=== PATIENT | female | born 1960 | race Caucasian/White ===

== ENCOUNTER 2020-10-09 21:42 | Emergency (ER) | payer MEDICAID ==
[2020-10-09] MEDS ORDERED: methylPREDNISolone Sodium Succinate 125 MG/2 ML SDV IM ONE (21:57)
[2020-10-09] MEDS ORDERED: Albuterol/Ipratropium 3.0-0.5 MG/3 ML Neb Soln NEB ONE ×2 (21:57→23:23)
--- NOTE | 2020-10-09 22:37 | EDM.PDOC ---
ED HPI GENERAL MEDICAL PROBLEM - General Chief Complaint: Respiratory Problem Stated Complaint: TROUBLE WITH COPD Time Seen by Provider: 10/09/20 21:57 Source of Information: Reports: Patient History Limitations: Reports: No Limitations - History of Present Illness INITIAL COMMENTS - FREE TEXT/NARRATIVE: Tonya is a 60-year-old female with complaint of increased dyspnea. She has a history for COPD but continues to smoke. She is visiting from [place] for her mother's Memorial. She states that she has had increasing dyspnea over the last 2 days and has been trying to use her medications without any improvement. Prompted her to come to the ER tonight. Patient denies any fever. She has a cough but has not been productive. She has increased dyspnea and tented respirations. Despite her advanced COPD she still smokes 1 pack/day. Thoracic Pain Score (Numeric/FACES): 6 - Related Data Allergies Allergy/AdvReac Type Severity Reaction Status Date / Time No Known Allergies Allergy Verified 10/09/20 21:43 Home Meds: Home Meds Albuterol Sulfate [Albuterol Sulfate Hfa] 2 puff INH Q4HR PRN 10/09/20 [History] Benzonatate [Tessalon Perle] 100 mg PO TID PRN #20 capsule 10/09/20 [Rx] Budesonide/Formoterol [Symbicort 160-4.5 MCG] 2 puff INH BID 10/09/20 [History] FLUoxetine HCl [Fluoxetine HCl] 2 cap PO DAILY 10/09/20 [History] Fluticasone Propionate [Flonase] 2 inh NASLF DAILY 10/09/20 [History] Fluticasone/Salmeterol [Advair 500-50] 2 inh INH DAILY 10/09/20 [History] Levothyroxine 1 tab PO DAILY 10/09/20 [History] Zolpidem Tartrate [Ambien] 1 tab PO BEDTIME 10/09/20 [History] ED ROS GENERAL - Review of Systems Review Of Systems: See Below Constitutional: Reports: No Symptoms HEENT: Reports: No Symptoms Respiratory: Reports: Shortness of Breath, Wheezing, Cough. Denies: Sputum Cardiovascular: Reports: No Symptoms Endocrine: Reports: No Symptoms GI/Abdominal: Reports: No Symptoms : Reports: No Symptoms Musculoskeletal: Reports: No Symptoms Skin: Reports: No Symptoms Neurological: Reports: No Symptoms Psychiatric: Reports: Anxiety Hematologic/Lymphatic: Reports: No Symptoms Immunologic: Reports: No Symptoms ED EXAM, GENERAL - Physical Exam Exam: See Below Exam Limited By: No Limitations General Appearance: Alert, Moderate Distress Eye Exam: Bilateral Eye: EOMI, PERRL Throat/Mouth: Normal Inspection, Normal Oropharynx, Normal Voice, No Airway Compromise Head: Atraumatic, Normocephalic Neck: Normal Inspection, Supple Respiratory/Chest: Respiratory Distress (Tachypnea with tented respirations), Decreased Breath Sounds (Diminished breath sounds especially in the bases), Wheezing (Diffuse bilateral expiratory greater than inspiratory wheezes), Accessory Muscle Use, Prolonged Expiration Cardiovascular: Normal Peripheral Pulses, Regular Rate, Rhythm, No Murmur Peripheral Pulses: 2+: Radial (L), Radial (R), Posterior Tibial (L), Posterior Tibial (R) GI/Abdominal: Normal Bowel Sounds, Soft, Non-Tender Back Exam: Normal Inspection Extremities: Normal Inspection, No Pedal Edema Neurological: Alert, Oriented, Normal Cognition, No Motor/Sensory Deficits Psychiatric: Normal Affect, Anxious Skin Exam: Warm, Dry Lymphatic: No Adenopathy Course - Vital Signs Last Recorded V/S: Last Vital Signs Temp 36.8 C 10/09/20 22:00 Pulse 102 H 10/09/20 22:00 Resp 18 10/09/20 22:00 BP 164/82 H 10/09/20 22:00 Pulse Ox 95 10/09/20 22:00 - Orders/Labs/Meds Orders: Active Orders 24 hr Category Date Time Status RT Aerosol Therapy [RC] ASDIRECTED Care 10/09/20 21:58 Active RT Aerosol Therapy [RC] ASDIRECTED Care 10/09/20 23:23 Active Chest 2V [CR] Stat Exams 10/09/20 21:57 Taken Labs: Laboratory Tests 10/09/20 10/09/20 Range/Units 22:12 22:12 WBC 10.0 (4.5-11.0) K/uL RBC 4.05 (3.30-5.50) M/uL Hgb 12.4 (12.0-15.0) g/dL Hct 38.3 (36.0-48.0) % MCV 95 (80-98) fL MCH 31 (27-31) pg MCHC 32 (32-36) % Plt Count 391 (150-400) K/uL Neut % (Auto) 58 (36-66) % Lymph % (Auto) 28 (24-44) % [place] % (Auto) 10 H (2-6) % Eos % (Auto) 4 (2-4) % Baso % (Auto) 0 (0-1) % Sodium 148 (140-148) mmol/L Potassium 4.0 (3.6-5.2) mmol/L Chloride 108 (100-108) mmol/L Carbon Dioxide 25 (21-32) mmol/L Anion Gap 15.5 H (5.0-14.0) mmol/L BUN 10 (7-18) mg/dL Creatinine 1.0 (0.6-1.0) mg/dL Est Cr Clr Drug Dosing TNP Estimated GFR (MDRD) 57 L (>60) Glucose 98 (74-106) mg/dL Calcium 10.1 (8.5-10.1) mg/dL Total Bilirubin 0.2 (0.2-1.0) mg/dL AST 38 H (15-37) U/L ALT 48 (12-78) U/L Alkaline Phosphatase 95 (46-116) U/L Total Protein 7.0 (6.4-8.2) g/dL Albumin 3.5 (3.4-5.0) g/dL Globulin 3.5 (2.3-3.5) g/dL Albumin/Globulin Ratio 1.0 L (1.2-2.2) Meds: Medications Discontinued Medications Generic Name Dose Route Start Last Admin Trade Name Freq PRN Reason Stop Dose Admin Albuterol/Ipratropium 3 ml 10/09/20 21:57 10/09/20 22:11 Albuterol/Ipratropium 3.0-0.5 Mg/3 Ml Neb Soln NEB 10/09/20 21:58 3 ml ONETIME ONE Administration Albuterol/Ipratropium 3 ml 10/09/20 23:23 10/09/20 23:30 Albuterol/Ipratropium 3.0-0.5 Mg/3 Ml Neb Soln NEB 10/09/20 23:24 3 ml ONETIME ONE Administration Benzonatate 200 mg 10/09/20 23:18 10/09/20 23:31 Benzonatate 100 Mg Cap PO 10/09/20 23:19 200 mg ONETIME ONE Administration Methylprednisolone Sodium Succinate 125 mg 10/09/20 21:57 10/09/20 22:11 Methylprednisolone Sodium Succinate 125 Mg/2 Ml Sdv IM 10/09/20 21:58 125 mg ONETIME ONE Administration - Radiology Interpretation Free Text/Narrative:: I reviewed the two-view chest x-ray showing hyperinflation and a left pleural effusion. There is no acute infiltrates. - Re-Assessments/Exams Free Text/Narrative Re-Assessment/Exam: 10/09/20 23:36 I reviewed the patient's x-rays of the chest as well as her labs. The chest x-ray shows hyperinflation without obvious infiltrates and a left pleural effusion. The labs show a normal CBC and comprehensive metabolic panel. This is likely an acute on chronic flare of her COPD. My plan is to treat her with azithromycin for bronchiectasis and a prednisone 10-day taper for her COPD flare. We will also give her a prescription for Tessalon Perles that she can fill in the morning for her cough. Departure - Departure Time of Disposition: 23:57 Disposition: Home, Self-Care 01 Clinical Impression: COPD exacerbation Bronchiectasis Qualifiers: Bronchiectasis type: with acute exacerbation Qualified Code(s): J47.1 - Br onchiectasis with (acute) exacerbation - Discharge Information Prescriptions: Benzonatate [Tessalon Perle] 100 mg PO TID PRN #20 capsule PRN Reason: Cough Instructions: COPD and Physical Activity, Chronic Obstructive Pulmonary Disease Exacerbation, [id number] Referrals: PCP,None [Primary Care Provider] - Forms: ED Department Discharge Care Plan Goals: I have prescribed azithromycin as an antibiotic to help with your bronchiectasis (chronic bronchitis) as well as a prednisone taper for your COPD exacerbation and a written prescription for you to fill in the morning for Tessalon Perles for the cough. Sepsis Event Note (ED) - Focused Exam Vital Signs: Vital Signs Temp Pulse Resp BP Pulse Ox 10/09/20 22:00 36.8 C 102 H 18 164/82 H 95 - Problem List & Annotations (1) Bronchiectasis SNOMED Code(s): 66636303 Code(s): J47.9 - BRONCHIECTASIS, UNCOMPLICATED Status: Acute Priority: High Current Visit: Yes Qualifiers: Bronchiectasis type: with acute exacerbation Qualified Code(s): J47.1 - Bronchiectasis with (acute) exacerbation (2) COPD exacerbation SNOMED Code(s): 600616344 Code(s): J44.1 - CHRONIC OBSTRUCTIVE PULMONARY DISEASE W (ACUTE) EXACERBATION Status: Acute Priority: High Current Visit: Yes - Problem List Review Problem List Initiated/Reviewed/Updated: Yes - My Orders Last 24 Hours: My Active Orders 10/09/20 21:57 Chest 2V [CR] Stat 10/09/20 21:58 RT Aerosol Therapy [RC] ASDIRECTED 10/09/20 23:23 RT Aerosol Therapy [RC] ASDIRECTED - Assessment/Plan Last 24 Hours: My Active Orders 10/09/20 21:57 Chest 2V [CR] Stat 10/09/20 21:58 RT Aerosol Therapy [RC] ASDIRECTED 10/09/20 23:23 RT Aerosol Therapy [RC] ASDIRECTED
[2020-10-09] MEDS ORDERED: Benzonatate 100 MG Cap PO ONE (23:18)
--- NOTE | 2020-10-11 09:49 | CR ---
CHEST: 2 view CLINICAL HISTORY:Dyspnea COMPARISON:None FINDINGS: The heart size, pulmonary vascularity and hilar structures are normal. No infiltrate effusion or pneumothorax is seen. IMPRESSION: No acute cardiopulmonary process.
== END 2020-10-10 00:12 | disposition home or self-care (01) ==
LOC: MERGE 21:42 → JP.ED 21:42
DX: J47.1 Bronchiectasis with (acute) exacerbation (principal)
CPT/HCPCS: 36415; 71046; 80053; 85025; 94640; 96372; 99285; A9270; J2930; J7620-GY

== ENCOUNTER 2021-01-04 21:38 | Emergency (ER) | payer MEDICAID ==
[2021-01-04] MEDS ORDERED: methylPREDNISolone Sodium Succinate 125 MG/2 ML SDV IVPUSH ONE (22:23)
[2021-01-04] MEDS ORDERED: Albuterol/Ipratropium 3.0-0.5 MG/3 ML Neb Soln NEB ONE ×2 (22:23→23:24)
[2021-01-04] MEDS ORDERED: Sodium Chloride 0.9% 10 ML Syringe FLUSH PRN (22:24)
[2021-01-04] MEDS ORDERED: Albuterol/Ipratropium 3.0-0.5 MG/3 ML Neb Soln ONE (23:25)
--- NOTE | 2021-01-04 23:26 | EDM.PDOC ---
ED HPI GENERAL MEDICAL PROBLEM - General Chief Complaint: Respiratory Problem Stated Complaint: COUGHING AND FEVER Time Seen by Provider: 01/04/21 22:18 Source of Information: Reports: Patient History Limitations: Reports: No Limitations - History of Present Illness INITIAL COMMENTS - FREE TEXT/NARRATIVE: Tonya is a 61-year-old female presenting to the ED for evaluation of fever as high as 104 F, cough producing thick sputum, and increasing shortness of breath. She has a history significant for COPD and is on continuous home oxygen. She reports that since the smoke came into the area she has been having increasing difficulty with breathing. She has been using her inhalers and her home nebulizers without much benefit. Its been over 4 months since her last COPD exacerbation. Her fever was first noted today. - Related Data Allergies Allergy/AdvReac Type Severity Reaction Status Date / Time No Known Allergies Allergy Verified 10/13/20 09:03 Home Meds: Home Meds Albuterol Sulfate [Albuterol Sulfate Hfa] 2 puff INH Q4HR PRN 10/09/20 [History] Benzonatate [Tessalon Perle] 100 mg PO TID PRN #20 capsule 10/09/20 [Rx] Budesonide/Formoterol [Symbicort 160-4.5 MCG] 2 puff INH BID 10/09/20 [History] FLUoxetine HCl [Fluoxetine HCl] 2 cap PO DAILY 10/09/20 [History] Fluticasone Propionate [Flonase] 2 inh NASLF DAILY 10/09/20 [History] Fluticasone/Salmeterol [Advair 500-50] 2 inh INH DAILY 10/09/20 [History] Levothyroxine 1 tab PO DAILY 10/09/20 [History] Zolpidem Tartrate [Ambien] 1 tab PO BEDTIME 10/09/20 [History] Budesonide/Formoterol [Symbicort 160-4.5 MCG] 2 puff INH BID #1 ea 01/05/21 [Rx] Fluticasone/Salmeterol [Advair 500-50] 2 puff INH BID #1 diskus 01/05/21 [Rx] Past Medical History HEENT History: Reports: Impaired Vision Respiratory History: Reports: Bronchitis, Recurrent, COPD, SOB Other Respiratory History: oxygen dependent [employer] History: Reports: Psychiatric History: Reports: Anxiety, PTSD Endocrine/Metabolic History: Reports: Hypothyroidism - Infectious Disease History Infectious Disease History: Reports: Chicken Pox, Measles Social & Family History - Tobacco Use Tobacco Use Status *Q: Former Tobacco User Used Tobacco, but Quit: Yes Month/Year Tobacco Last Used: 06/2020 - Caffeine Use Caffeine Use: Reports: Coffee - Recreational Drug Use Recreational Drug Use: No ED ROS GENERAL - Review of Systems Review Of Systems: See Below Constitutional: Reports: Fever, Chills HEENT: Reports: No Symptoms Respiratory: Reports: Shortness of Breath, Wheezing, Cough, Sputum Cardiovascular: Reports: No Symptoms Endocrine: Reports: Fatigue GI/Abdominal: Reports: No Symptoms : Reports: No Symptoms Musculoskeletal: Reports: No Symptoms Skin: Reports: No Symptoms Neurological: Reports: No Symptoms Psychiatric: Reports: No Symptoms Hematologic/Lymphatic: Reports: No Symptoms Immunologic: Reports: No Symptoms ED EXAM, GENERAL - Physical Exam Exam: See Below Exam Limited By: No Limitations General Appearance: Alert, Anxious, Mild Distress, Moderate Distress Eye Exam: Bilateral Eye: EOMI, PERRL Nose: Nasal Swelling, Nasal Drainage, Clear Rhinorrhea Throat/Mouth: Normal Inspection, Normal Lips, Normal Oropharynx, Normal Voice, No Airway Compromise Head: Normocephalic Neck: Normal Inspection, Supple Respiratory/Chest: Decreased Breath Sounds (Bilateral bases left greater than right), Wheezing (Inspiratory and expiratory wheezing throughout bilateral lung grimes.), Accessory Muscle Use, Prolonged Expiration. No: Retractions Cardiovascular: Normal Peripheral Pulses, Regular Rate, Rhythm, No Murmur Peripheral Pulses: 2+: Radial (L), Radial (R) GI/Abdominal: Normal Bowel Sounds, Soft, Non-Tender Back Exam: Normal Inspection Extremities: Normal Inspection, Normal Range of Motion, Normal Capillary Refill Neurological: Alert, Oriented, Normal Cognition, No Motor/Sensory Deficits Psychiatric: Normal Affect, Normal Mood Skin Exam: Warm, Dry Lymphatic: No Adenopathy Course - Vital Signs Last Recorded V/S: Last Vital Signs Temp 37.7 C 01/04/21 22:59 Pulse 96 01/04/21 22:59 Resp 22 H 01/04/21 22:59 BP 141/89 H 01/04/21 22:59 Pulse Ox 96 01/04/21 22:59 - Orders/Labs/Meds Orders: Active Orders 24 hr Category Date Time Status RT Aerosol Therapy [RC] ASDIRECTED Care 01/04/21 22:23 Active RT Aerosol Therapy [RC] ASDIRECTED Care 01/04/21 23:24 Active Chest 2V [CR] Stat Exams 01/04/21 22:23 Taken CULTURE BLOOD [BC] Urgent Lab 01/04/21 22:35 Received CULTURE BLOOD [BC] Urgent Lab 01/04/21 22:40 Received Sodium Chloride 0.9% [Saline Flush] Med 01/04/21 22:24 Active 10 ml FLUSH ASDIRECTED PRN Blood Culture x2 Reflex Set [OM.PC] Urgent Oth 01/04/21 22:23 Ordered Saline Lock Insert [OM.PC] Routine Oth 01/04/21 22:24 Ordered Medication Orders Sodium Chloride (Sodium Chloride 0.9% 10 Ml Syringe) 10 ml FLUSH ASDIRECTED PRN PRN Reason: Keep Vein Open Labs: Laboratory Tests 01/04/21 01/04/21 Range/Units 22:40 22:40 WBC 6.9 (4.5-11.0) K/uL RBC 4.44 (3.30-5.50) M/uL Hgb 13.5 (12.0-15.0) g/dL Hct 41.6 (36.0-48.0) % MCV 94 (80-98) fL MCH 30 (27-31) pg MCHC 33 (32-36) % Plt Count 314 (150-400) K/uL Neut % (Auto) 55.2 (36-66) % Lymph % (Auto) 21.3 L (24-44) % [place] % (Auto) 10.5 H (2-6) % Eos % (Auto) 12.1 H (2-4) % Baso % (Auto) 0.9 (0-1) % Sodium 140 (140-148) mmol/L Potassium 3.7 (3.6-5.2) mmol/L Chloride 103 (100-108) mmol/L Carbon Dioxide 27 (21-32) mmol/L Anion Gap 10.5 (5.0-14.0) mmol/L BUN 7 (7-18) mg/dL Creatinine 0.9 (0.6-1.0) mg/dL Est Cr Clr Drug Dosing 61.45 mL/min Estimated GFR (MDRD) > 60 (>60) Glucose 97 (74-106) mg/dL Calcium 9.0 (8.5-10.1) mg/dL Total Bilirubin 0.1 L (0.2-1.0) mg/dL AST 28 (15-37) U/L ALT 37 (12-78) U/L Alkaline Phosphatase 84 (46-116) U/L C-Reactive Protein 3.55 H (0.0-0.3) mg/dL Total Protein 6.7 (6.4-8.2) g/dL Albumin 3.5 (3.4-5.0) g/dL Globulin 3.2 (2.3-3.5) g/dL Albumin/Globulin Ratio 1.1 L (1.2-2.2) Meds: Medications Generic Name Dose Route Start Last Admin Trade Name Freq PRN Reason Stop Dose Admin Sodium Chloride 10 ml 01/04/21 22:24 Sodium Chloride 0.9% 10 Ml Syringe FLUSH ASDIRECTED PRN Keep Vein Open Discontinued Medications Generic Name Dose Route Start Last Admin Trade Name Freq PRN Reason Stop Dose Admin Albuterol/Ipratropium 3 ml 01/04/21 22:23 01/04/21 22:43 Albuterol/Ipratropium 3.0-0.5 Mg/3 Ml Neb Soln NEB 01/04/21 22:24 3 ml ONETIME ONE Administration Albuterol/Ipratropium 3 ml 01/04/21 23:24 01/04/21 23:30 Albuterol/Ipratropium 3.0-0.5 Mg/3 Ml Neb Soln NEB 01/04/21 23:25 3 ml ONETIME ONE Administration Albuterol/Ipratropium Confirm 01/04/21 23:25 Albuterol/Ipratropium 3.0-0.5 Mg/3 Ml Neb Soln Administered 01/04/21 23:26 Dose 3 ml .ROUTE .STK-MED ONE Methylprednisolone Sodium Succinate 125 mg 01/04/21 22:23 01/04/21 22:43 Methylprednisolone Sodium Succinate 125 Mg/2 Ml Sdv IVPUSH 01/04/21 22:24 125 mg ONETIME ONE Administration - Re-Assessments/Exams Free Text/Narrative Re-Assessment/Exam: 01/05/21 00:40 Tonya was treated with a DuoNeb and Solu-Medrol 125 mg IV. She underwent labs showing a normal leukocyte count at 6.9 with a hemoglobin of 13.5, hematocrit of 41.6, and platelet count 314,000. Her comprehensive metabolic panel is unremarkable. Her C-reactive protein is elevated at 3.55. Chest x-ray was obtained showing some mild haziness in the left base which was seen on her previous x-ray but appears to be slightly worse when compared to the x-ray on 09 October 2020. My concern is that this is simply a COPD exacerbation, however, I do not have a explanation for a normal leukocyte count and a fever reported to be 104 F. I do not everything definitive to call this and pneumonia. The patient did improve after therapy but has been out of her regular maintenance COPD medications including her Advair and her budesonide formoterol inhalers. She is also out of her albuterol nebs and albuterol inhaler. We will refill these tonight but since she is doing better I do not think that she warrants hospitalization at this time. Patient is in agreement with this plan and will return to the ED if she develops significant worsening of symptoms. Departure - Departure Time of Disposition: 00:42 Disposition: Home, Self-Care 01 Clinical Impression: COPD exacerbation Bronchiectasis Qualifiers: Bronchiectasis type: with acute exacerbation Qualified Code(s): J47.1 - Bronchiectasis with (acute) exacerbation - Discharge Information Prescriptions: Fluticasone/Salmeterol [Advair 500-50] 2 puff INH BID #1 diskus Budesonide/Formoterol [Symbicort 160-4.5 MCG] 2 puff INH BID #1 ea Instructions: Chronic Obstructive Pulmonary Disease Exacerbation, [id number] Referrals: PCP,None [Primary Care Provider] - Forms: ED Department Discharge Care Plan Goals: I have refilled your prescriptions for the budesonide formoterol and Advair. You may pick these up in the pharmacy tomorrow as there is a printed prescription for you tonight. In addition, I have sent prescriptions out to the [facility] machine for albuterol neb solution as well as albuterol inhaler. Return to the ED should you develop any significant worsening of your shortness of breath. Sepsis Event Note (ED) - Evaluation Sepsis Screening Result: No Definite Risk - Focused Exam Vital Signs: Vital Signs Temp Pulse Resp BP Pulse Ox 01/04/21 22:59 37.7 C 96 22 H 141/89 H 96 01/04/21 22:45 37.7 C 96 22 H 141/89 H 96 01/04/21 22:00 37.7 C 96 22 H 141/89 H 96 - Problem List & Annotations (1) COPD exacerbation SNOMED Code(s): 248837964 Code(s): J44.1 - CHRONIC OBSTRUCTIVE PULMONARY DISEASE W (ACUTE) EXACERBATION Status: Acute Priority: High Current Visit: Yes (2) Bronchiectasis SNOMED Code(s): 69341201 Code(s): J47.9 - BRONCHIECTASIS, UNCOMPLICATED Status: Acute Priority: High Current Visit: Yes Qualifiers: Bronchiectasis type: with acute exacerbation Qualified Code(s): J47.1 - Bronchiectasis with (acute) exacerbation - Problem List Review Problem List Initiated/Reviewed/Updated: Yes - My Orders Last 24 Hours: My Active Orders 01/04/21 22:23 RT Aerosol Therapy [RC] ASDIRECTED Chest 2V [CR] Stat Blood Culture x2 Reflex Set [OM.PC] Urgent 01/04/21 22:24 Sodium Chloride 0.9% [Saline Flush] 10 ml FLUSH ASDIRECTED PRN Saline Lock Insert [OM.PC] Routine 01/04/21 22:35 CULTURE BLOOD [BC] Urgent 01/04/21 22:40 CULTURE BLOOD [BC] Urgent 01/04/21 23:24 RT Aerosol Therapy [RC] ASDIRECTED - Assessment/Plan Last 24 Hours: My Active Orders 01/04/21 22:23 RT Aerosol Therapy [RC] ASDIRECTED Chest 2V [CR] Stat Blood Culture x2 Reflex Set [OM.PC] Urgent 01/04/21 22:24 Sodium Chloride 0.9% [Saline Flush] 10 ml FLUSH ASDIRECTED PRN Saline Lock Insert [OM.PC] Routine 01/04/21 22:35 CULTURE BLOOD [BC] Urgent 01/04/21 22:40 CULTURE BLOOD [BC] Urgent 01/04/21 23:24 RT Aerosol Therapy [RC] ASDIRECTED
--- NOTE | 2021-01-05 09:14 | CR ---
CHEST: 2 view CLINICAL HISTORY:Dyspnea, cough, COPD COMPARISON:10/09/2020 FINDINGS: The heart size, pulmonary vascularity and hilar structures are normal. No infiltrate effusion or pneumothorax is seen. There is some density in the lingula. This has increased slightly since the prior study and has a more convex margin. Some of this due to cardiac fat pad and pleural reflection. Pleural based lesion is not excluded. IMPRESSION: Increasing lingular density Short-term follow-up recommended to exclude underlying lesion
== END 2021-01-05 01:06 | disposition home or self-care (01) ==
LOC: JP.ED 21:38
DX: J47.1 Bronchiectasis with (acute) exacerbation (principal); E03.9 Hypothyroidism, unspecified; Z79.899 Other long term (current) drug therapy; Z87.891 Personal history of nicotine dependence
CPT/HCPCS: 36415; 71046; 80053; 85025; 86140; 87040; 94640; 96374; 99284; J2930; J7620-GY

== ENCOUNTER 2021-11-11 13:16 | Emergency (ER) | payer MEDICAID ==
[2021-11-11] MEDS ORDERED: fentaNYL 100 MCG/2 ML SDV IM ONE (14:07)
[2021-11-11] MEDS ORDERED: Cyclobenzaprine 10 MG Tab PO ONE (14:07)
== END 2021-11-11 15:17 | disposition home or self-care (01) ==
LOC: JP.ED 13:16
DX: R07.81 Pleurodynia (principal); J44.9 Chronic obstructive pulmonary disease, unspecified; E03.9 Hypothyroidism, unspecified; F17.210 Nicotine dependence, cigarettes, uncomplicated; Z79.899 Other long term (current) drug therapy
CPT/HCPCS: 71046; 96372; 99284; A9270; J3010; 99283

== ENCOUNTER 2022-01-02 11:47 | Emergency (ER) | payer MEDICAID ==
[2022-01-02] MEDS ORDERED: Albuterol/Ipratropium 3.0-0.5 MG/3 ML Neb Soln NEB ONE (13:17)
[2022-01-02] MEDS ORDERED: Acetaminophen 325 MG Tab PO ONE (13:17)
[2022-01-02 13:53] LABS: ESTIMATED GFR 72 mL/min (>60); TROPONIN I HIGH SENSITIVITY 4.4 pg/mL (<=60.3)
== END 2022-01-02 16:29 | disposition home or self-care (01) ==
LOC: JP.ED 11:47
DX: S06.0X0A Concussion without loss of consciousness, initial encounter (principal); J44.9 Chronic obstructive pulmonary disease, unspecified; F17.210 Nicotine dependence, cigarettes, uncomplicated; Z79.899 Other long term (current) drug therapy; X58.XXXA Exposure to other specified factors, initial encounter
CPT/HCPCS: 36415; 70450; 80053; 84484; 85025; 93005; 94640; 99284; A9270; J7620

== ENCOUNTER 2024-06-15 06:44 | Inpatient (IN) | payer MEDICAID ==
[2024-06-15] MEDS: Levalbuterol HCl 1.25 MG/3 ML Neb NEB ONE (06:50)
[2024-06-15] MEDS: LORazepam 2 MG/ML SDV IVPUSH ONE (07:09)
[2024-06-15] MEDS: methylPREDNISolone Sodium Succinate 125 MG/2 ML SDV IVPUSH ONE (07:10)
[2024-06-15] MEDS: Magnesium Sulfate/Water Premix 2 GM in Premix Bag 1 BAG IV ONE (07:11)
[2024-06-15 07:15] LABS: BASOPHILS ABSOLUTE AUTO 0.06 K/uL (0.00-0.10); BASOPHILS PERCENT AUTO 0.6 % (0.1-1.3); CARBOXYHEMOGLOBIN 1.6 % (0.0-1.6); EOSINOPHILS ABSOLUTE AUTO 0.06 K/uL (0.00-0.40); EOSINOPHILS PERCENT AUTO 0.6 % (0.0-5.4); HEMATOCRIT 41.8 % (34.3-46.0); HEMOGLOBIN 13.5 g/dL (11.2-15.5); IMMATURE GRAN ABSOLUTE AUTO 0.03 K/uL (0.00-0.23); IMMATURE GRAN PERCENT AUTO 0.3 % (0.0-0.7); LYMPHOCYTES ABSOLUTE AUTO 1.09 K/uL (0.8-3.3); LYMPHOCYTES PERCENT AUTO 10.4 % (11.4-47.7); MEAN CORPUSCULAR HEMOGLOBIN 31.5 pg (31.6-35.5); MEAN CORPUSCULAR HGB CONC 32.3 g/dL (31.6-35.5); MEAN CORPUSCULAR VOLUME 97.4 fL (81.4-99.0); METHEMOGLOBIN 0.5 %; MONOCYTES ABSOLUTE AUTO 1.33 K/uL (0.20-0.90); MONOCYTES PERCENT AUTO 12.7 % (3.3-12.6); NEUTROPHILS PERCENT AUTO 75.4 % (40.0-78.1); O2 SATURATION VENOUS 97.5; OXYHEMOGLOBIN 95.5 %; PH,VENOUS 7.365 (7.350-7.450); PLATELET COUNT,PLT 236 K/uL (130-375); PO2 VENOUS 95.8 mm/Hg; RED BLOOD CELL COUNT 4.29 M/uL (3.77-5.24); WHITE BLOOD CELL COUNT,WBC 10.5 K/uL (3.2-11.0)
[2024-06-15 07:18] LABS: BASE EXCESS VENOUS 0.4 mm/L; BICARBONATE,VENOUS 25.6 mmol/L
[2024-06-15] MEDS ORDERED: Naloxone 0.4 MG/ML SDV IVPUSH PRN (07:28)
[2024-06-15] MEDS: Furosemide 20 MG/2 ML VIAL IVPUSH ONE (07:34)
[2024-06-15] MEDS: Morphine 10 MG/ML Syringe IVPUSH ONE (07:34)
[2024-06-15 07:37] LABS: ALANINE AMINOTRANSFERASE,ALT 28 U/L (12-78); ALBUMIN 3.7 g/dL (3.4-5.0); ALKALINE PHOSPHATASE 61 U/L (46-116); ASPARTATE AMNIOTRANSFERASE,AST 22 U/L (15-37); BILIRUBIN TOTAL 0.3 mg/dL (0.2-1.0); BLOOD UREA NITROGEN,BUN 9 mg/dL (7-18); CALCIUM 9.5 mg/dL (8.5-10.1); CARBON DIOXIDE,CO2 28 mmol/L (21-32); CHLORIDE,CL 101 mmol/L (100-108); CREATININE 0.9 mg/dL (0.6-1.0); ESTIMATED GFR 71 mL/min (>60); GLUCOSE RANDOM 142 mg/dL (74-106); POTASSIUM,K 3.8 mmol/L (3.6-5.2); PROTEIN TOTAL,TP 7.3 g/dL (6.4-8.2); SODIUM,NA 139 mmol/L (140-148)
[2024-06-15 07:38] LABS: ANION GAP 13.8 mmol/L (5.0-14.0)
[2024-06-15] MEDS ORDERED: Morphine 2 MG/ML SYRINGE IVPUSH PRN (08:33)
[2024-06-15] MEDS ORDERED: Morphine 10 MG/ML Syringe IVPUSH PRN (08:39)
[2024-06-15] MEDS ORDERED: Ondansetron 4 MG Tab.DIS PO PRN (10:22)
[2024-06-15] MEDS ORDERED: Acetaminophen 325 MG Tab PO PRN (10:22)
[2024-06-15] MEDS ORDERED: Ondansetron 4 MG/2 ML SDV IV PRN (10:22)
[2024-06-15] MEDS ORDERED: Magnesium Hydroxide 400 MG/5 ML Susp 30 ML Cup PO PRN (10:22)
[2024-06-15] MEDS: Albuterol/Ipratropium 3.0-0.5 MG/3 ML Neb Soln NEB SCH (10:34)
[2024-06-15] MEDS: Doxycycline 100 MG in Sodium Chloride 0.9% 100 ML IV SCH (10:52)
[2024-06-15] MEDS: Enoxaparin 40 MG/0.4 ML Syringe SUBCUT SCH (10:52)
[2024-06-15] MEDS: cefTRIAXone 2 GM in Sodium Chloride 0.9% 50 ML IV SCH (11:56)
[2024-06-15] MEDS: Morphine 4 MG/ML Syringe IVPUSH PRN (12:09)
[2024-06-15] MEDS: LORazepam 2 MG/ML SDV IVPUSH PRN (12:38)
[2024-06-15] MEDS: methylPREDNISolone Sodium Succinate 125 MG/2 ML SDV IVPUSH SCH (14:24)
[2024-06-15 14:51] LABS: APPEARANCE,URINE SLIGHTLY CLOUDY (CLEAR); BILIRUBIN,URINE NEGATIVE (NEGATIVE); GLUCOSE,URINE NEGATIVE (NEGATIVE); KETONES,URINE NEGATIVE (NEGATIVE); LEUKOCYTE ESTERASE,URINE NEGATIVE (NEGATIVE); NITRITE,URINE NEGATIVE (NEGATIVE); OCCULT BLOOD,URINE LARGE (NEGATIVE); PROTEIN,URINE 100 mg/dL (NEGATIVE); UROBILINOGEN,URINE 0.2 EU/dL (0.2-1.0)
[2024-06-15 15:00] LABS: AMPHETAMINES SCREEN, URINE NEGATIVE (NEGATIVE); BARBITURATE SCREEN,URINE NEGATIVE (NEGATIVE); BENZODIAZEPINES SCREEN,URINE PRESUMPTIVE POSITIVE (NEGATIVE); METHADONE SCREEN, URINE NEGATIVE (NEGATIVE); METHAMPHETAMINES SCREEN, URINE NEGATIVE (NEGATIVE); OXYCODONE SCREEN,URINE NEGATIVE (NEGATIVE); PROPOXYPHENE SCREEN,URINE NEGATIVE (NEGATIVE); THC SCREEN,URINE 50 NG/ML NEGATIVE (NEGATIVE)
[2024-06-15 15:01] LABS: AMORPHOUS SEDIMENT,URINE MODERATE; BACTERIA,URINE MODERATE; COLOR,URINE OTHER (YELLOW); EPITHELIAL CELLS,URINE FEW; MUCUS,URINE NOT SEEN; RBC,URINE >100 (0-5)
[2024-06-15] MEDS: Sodium Chloride 0.9% 1,000 ML IV SCH (19:51)
[2024-06-16 04:47] LABS: HEMATOCRIT 40.1 % (34.3-46.0); HEMOGLOBIN 12.8 g/dL (11.2-15.5); MEAN CORPUSCULAR HEMOGLOBIN 31.5 pg (31.6-35.5); MEAN CORPUSCULAR HGB CONC 31.9 g/dL (31.6-35.5); MEAN CORPUSCULAR VOLUME 98.8 fL (81.4-99.0); RED BLOOD CELL COUNT 4.06 M/uL (3.77-5.24); WHITE BLOOD CELL COUNT,WBC 7.4 K/uL (3.2-11.0)
[2024-06-16 05:02] LABS: ANION GAP 8.8 mmol/L (5.0-14.0); CALCIUM 9.2 mg/dL (8.5-10.1); CREATININE 1.7 mg/dL (0.6-1.0); EST CRCL DRUG DOSING (CG) 30.08 mL/min; POTASSIUM,K 4.6 mmol/L (3.6-5.2)
[2024-06-16] MEDS: Sodium Chloride 0.9% 1,000 ML IV SCH ×2 (07:37→15:50)
[2024-06-16] MEDS: Haloperidol Lactate 5 MG/ML SDV IVPUSH PRN (08:49)
[2024-06-16] MEDS ORDERED: Non-Formulary Medication 1 Each (Levothyroxine [Levothyroxine] 125 MCG Tablet) PO SCH (09:00)
[2024-06-16] MEDS: Levothyroxine 100 MCG, Levothyroxine 25 MCG PO SCH (09:06)
[2024-06-16] MEDS: Methylphenidate 10 MG Tab PO SCH (09:06)
[2024-06-16] MEDS: FLUoxetine 20 MG Cap PO SCH (09:06)
[2024-06-16] MEDS: Magnesium Sulfate/Water Premix 2 GM in Premix Bag 1 BAG IV ONE (09:08)
[2024-06-16] MEDS: guaiFENesin/Dextromethorphan 100-10 MG/5 ML Soln 10 ML Cup PO PRN (20:31)
[2024-06-17 05:31] LABS: BASE EXCESS ARTERIAL -3.5 mm/L; BICARBONATE,ARTERIAL 21.6 mmol/L (22.0-26.0); CARBOXYHEMOGLOBIN 2.4 % (0.0-1.6); METHEMOGLOBIN 0.9 %; O2 SATURATION ARTERIAL 93.2 % (95.0-98.0); OXYHEMOGLOBIN 90.1 %; PCO2 ARTERIAL 41.4 mmHg (35.0-42.0); PO2 ARTERIAL 65.1 mmHg (75.0-100.0)
[2024-06-17 05:36] LABS: HEMATOCRIT 36.4 % (34.3-46.0); HEMOGLOBIN 11.5 g/dL (11.2-15.5); MEAN CORPUSCULAR HEMOGLOBIN 31.9 pg (31.6-35.5); MEAN CORPUSCULAR HGB CONC 31.6 g/dL (31.6-35.5); MEAN CORPUSCULAR VOLUME 100.8 fL (81.4-99.0); RED BLOOD CELL COUNT 3.61 M/uL (3.77-5.24); WHITE BLOOD CELL COUNT,WBC 11.1 K/uL (3.2-11.0)
[2024-06-17 05:49] LABS: C-REACTIVE PROTEIN 5.03 mg/dL (<0.50); CALCIUM 8.6 mg/dL (8.5-10.1); EST CRCL DRUG DOSING (CG) 51.14 mL/min
[2024-06-17] MEDS: Sodium Chloride 0.9% 500 ML IV ONE (12:26)
[2024-06-17] MEDS: Sodium Chloride 0.9% 1,000 ML IV SCH (13:06)
[2024-06-17] MEDS: Albuterol 0.083% 2.5 MG/3 ML Neb Soln NEB PRN (16:55)
[2024-06-17] MEDS: Benzonatate 100 MG Cap PO PRN (19:20)
[2024-06-18 04:59] LABS: HEMATOCRIT 35.4 % (34.3-46.0); HEMOGLOBIN 11.1 g/dL (11.2-15.5); MEAN CORPUSCULAR HEMOGLOBIN 31.4 pg (31.6-35.5); MEAN CORPUSCULAR HGB CONC 31.4 g/dL (31.6-35.5); RED BLOOD CELL COUNT 3.54 M/uL (3.77-5.24); WHITE BLOOD CELL COUNT,WBC 8.7 K/uL (3.2-11.0)
[2024-06-18 05:15] LABS: CREATININE 0.9 mg/dL (0.6-1.0); EST CRCL DRUG DOSING (CG) 56.73 mL/min; MAGNESIUM 2.6 mg/dL (1.8-2.4); POTASSIUM,K 5.1 mmol/L (3.6-5.2)
[2024-06-18 05:21] LABS: ANION GAP 10.1 mmol/L (5.0-14.0)
[2024-06-18] MEDS: Sodium Chloride 0.9% 1,000 ML IV SCH (19:57)
[2024-06-19] MEDS: predniSONE 20 MG Tab PO SCH (11:20)
[2024-06-19] MEDS: Lisinopril 5 MG Tab PO ONE (16:19)
[2024-06-20] MEDS: Lisinopril 10 MG Tab PO SCH (15:10)
[2024-06-20] MEDS: LORazepam 0.5 MG Tab PO PRN (15:52)
[2024-06-21] MEDS: hydrALAZINE 10 MG Tab PO ONE (02:40)
[2024-06-21] MEDS: Sennosides/Docusate Sodium 50-8.6 MG Tab PO PRN (12:03)
[2024-06-21] MEDS: Lisinopril 10 MG Tab PO ONE (12:47)
[2024-06-21] MEDS: Furosemide 40 MG/4 ML VIAL IVPUSH ONE (12:48)
[2024-06-21] MEDS: Doxycycline 100 MG Cap PO SCH (21:13)
[2024-06-21] MEDS: Melatonin 3 MG Tab PO SCH (21:13)
[2024-06-21] MEDS: Cefdinir 300 MG Cap PO SCH (21:14)
[2024-06-22 05:33] LABS: ANION GAP 4.1 mmol/L (5.0-14.0); CALCIUM 9.3 mg/dL (8.5-10.1); CREATININE 0.8 mg/dL (0.6-1.0); EST CRCL DRUG DOSING (CG) 63.82 mL/min; MAGNESIUM 1.4 mg/dL (1.8-2.4); POTASSIUM,K 3.1 mmol/L (3.6-5.2)
[2024-06-22] MEDS: Magnesium Sulfate/Water Premix 2 GM in Premix Bag 1 BAG IV SCH (08:45)
[2024-06-22] MEDS: Lisinopril 20 MG Tab PO SCH (08:46)
[2024-06-22] MEDS: Potassium Chloride 20 MEQ Tab.ER PO ONE (08:55)
[2024-06-22] MEDS ORDERED: Lisinopril 10 MG Tab PO SCH (09:00)
== END 2024-06-22 15:50 | disposition home or self-care (01) | DRG 189 ==
LOC: JP.ED 06:44 → JP.ICU 08:52
PROVIDERS: ADMIT Internal Medicine; ATTEND Internal Medicine
PROC: 5A09557 Assistance with Respiratory Ventilation, Greater than 96 Consecutive Hours, Continuous Positive Airway Pressure (ICD-10-PCS; principal; 2024-06-15)
DX: J96.01 Acute respiratory failure with hypoxia (principal); J44.1 Chronic obstructive pulmonary disease with (acute) exacerbation; N17.9 Acute kidney failure, unspecified; J20.9 Acute bronchitis, unspecified; H54.7 Unspecified visual loss; F43.10 Post-traumatic stress disorder, unspecified; E03.9 Hypothyroidism, unspecified; F17.210 Nicotine dependence, cigarettes, uncomplicated; F15.90 Other stimulant use, unspecified, uncomplicated; F41.9 Anxiety disorder, unspecified; I10 Essential (primary) hypertension; E86.0 Dehydration; Z79.51 Long term (current) use of inhaled steroids; Z79.899 Other long term (current) drug therapy; Z85.810 Personal history of malignant neoplasm of tongue
CPT/HCPCS: 36415; 36600; 51702; 71045; 71045-26; 80048; 80053; 80305-QW; 81001; 82803; 83605; 83735; 83880; 84145; 84484; 85025; 85027; 86140; 87428-QW; 93005; 93010; 94640; 94660; 96365; 96366; 96375; 99223; 99232; 99233; 99238; 99285; 99285-25; A9270-GY; J0696; J1630; J1650; J1940; J2060; J2270; J2919; J3475; J3490; J7030; J7040; J7512; J7612-GY; J7620